=== PATIENT | female | born 1995 | race American Indian/Alaskan Native ===

== ENCOUNTER 2017-03-28 11:16 | Emergency (ER) | payer MEDICAID ==
[2017-03-28 11:25] VITALS: BP 118/79
[2017-03-28] MEDS ORDERED: REGLAN IV ONE (12:51)
[2017-03-28] MEDS ORDERED: TYLENOL PO ONE (12:52)
--- NOTE | 2017-03-28 14:56 | Emergency Department Report ---
Entered by ABIMAEL GONZALEZ, acting as scribe for JERMAINE MILNER PA. ED Headache HPI - General Chief Complaint: Headache Stated Complaint: MIGRAINES/BLURRED VISION Source: patient Exam Limitations: no limitations - History of Present Illness Initial Comments: 21 year old female with a PMHx of anemia and sickle cell trait presents to the ED c/o a left sided headache that began last night. Rates the headache a 6/10 in severity, which she describes as throbbing in quality. Patient states the pain radiates from her left orbital to left frontal. Notes she left work this morning due to headache. Associated symptoms includes slightly blurry vision that began this morning and light sensitivity, but she denies fever, chills, urgency, dysuria, abdominal pain, nausea, and vomiting. Denies any recent head trauma/injury. Denies Hx of migraines. Took 2 tablets of Aleve with no relief. Patient states she's been on Depo for 4 years. NKDA. Timing/Duration: constant, other (began last night) Quality: moderate Head Injury Location: other (headache present to left orbital and frontal area) Recent Head Trauma: no recent headache/trauma Modifying Factors: improves with: medication (took Aleve with no relief). worse with: exposure to light Associated Symptoms: vision changes (slightly subjective blurry vision), other ( light sensitivity, but denies dysuria, urgency, and abdominal pain). denies: confusion, facial pain, fever/chills, nausea/vomiting, numbness in legs/feet, stiff neck Allergies/Adverse Reactions: Allergies No Known Allergies Allergy (Verified 03/28/17 11:25) Home Medications: Ambulatory Orders Acetaminophen [Acetaminophen TAB] 500 mg PO Q6HR PRN #25 tablet 03/28/17 Ibuprofen [Motrin] 600 mg PO Q8H PRN #30 tablet 03/28/17 ED Review of Systems Comment: All other systems reviewed and negative Constitutional: no symptoms reported. denies: chills, fever Eyes: vision change (blurry vision), other (light sensitivity). denies: eye pain, eye discharge ENT: denies: ear pain, throat pain Respiratory: no symptoms reported. denies: cough, shortness of breath, wheezing Cardiovascular: denies: chest pain, palpitations Endocrine: no symptoms reported Gastrointestinal: denies: abdominal pain, nausea, diarrhea Genitourinary: denies: urgency, dysuria, discharge Musculoskeletal: denies: back pain, joint swelling, arthralgia, other (stiff neck ) Skin: denies: rash, lesions Neurological: headache (radiates from left orbital area to left frontal). denies: weakness, numbness, paresthesias, confusion Psychiatric: denies: anxiety, depression Hematological/Lymphatic: denies: easy bleeding, easy bruising ED Past Medical Hx - Past Medical History Previous Medical History?: Yes Additional medical history: anemia, sickle cell trait - Surgical History Past Surgical History?: No - Social History Smoking Status: Never Smoker Substance Use Type: None - Medications Home Medications: Home Medications Medication Instructions Recorded Confirmed Last Taken Type Acetaminophen [Acetaminophen TAB] 500 mg PO Q6HR PRN #25 tablet 03/28/17 Unknown Rx Ibuprofen [Motrin] 600 mg PO Q8H PRN #30 tablet 03/28/17 Unknown Rx ED Physical Exam - General Limitations: No Limitations General appearance: alert, in no apparent distress - Head Head exam: Present: atraumatic, normocephalic - Eye Eye exam: Present: normal appearance, EOMI. Absent: conjunctival injection Pupils: Present: normal accommodation - Expanded Eye Exam Expanded Pupils: Regular, Round: Bilateral Sclera/Conjunctival: Normal Inspection: Bilateral Visual acuity (R) = 20/: 25 Visual acuity (L) = 20/: 25 With correction: Yes - ENT ENT exam: Present: normal exam, mucous membranes moist - Neck Neck exam: Present: normal inspection, full ROM. Absent: tenderness, meningismus, lymphadenopathy - Respiratory Respiratory exam: Present: normal lung sounds bilaterally (no adventitious sounds present). Absent: respiratory distress, accessory muscle use, decreased breath sounds - Cardiovascular Cardiovascular Exam: Present: regular rate, normal rhythm, normal heart sounds - GI/Abdominal GI/Abdominal exam: Present: soft, normal bowel sounds - Extremities Exam Extremities exam: Present: normal inspection, full ROM - Back Exam Back exam: Present: normal inspection, full ROM - Neurological Exam Neurological exam: Present: alert, oriented X3, CN II-XII intact, normal gait, reflexes normal. Absent: motor sensory deficit - Expanded Neurological Exam Expanded Neurological exam: Absent: innattentive Patient oriented to: Present: person, place, time Speech: Present: fluid speech (normal tone of speech) Cranial nerves: EOM's Intact: Normal, Nystagmus: Normal, Facial Sensation: Normal, Facial Palsy with Forehead Movement: Normal, Facial Palsy without Forehead Movement: Normal Cerebellar function: Finger to Nose: Normal Motor strength exam: RUE: 5, LUE: 5, RLE: 5, LLE: 5 Best Eye Response ([place]): (4) open spontaneously Best Motor Response ([place]): (6) obeys commands Best Verbal Response ([place]): (5) oriented [place] Total: 15 - Psychiatric Psychiatric exam: Present: normal affect, normal mood - Skin Skin exam: Present: warm, dry, intact. Absent: rash ED Course Vital Signs 03/28/17 11:22 Temperature 98.3 F Pulse Rate 74 Respiratory 16 Rate Blood Pressure 118/79 O2 Sat by Pulse 98 Oximetry ED Medical Decision Making - Medical Decision Making A/P: Migraine headache 1- vision experienced significant relief of headache with Reglan and Tylenol, headache currently 0 out of 10. Patient has no neurological deficits on clinical exam, cranial nerves I through XII intact on clinical exam. awake alert and oriented 3 2- prescribe patient extra strength Tylenol and Motrin 3- follow-up with primary care and neurology 4-as patient has no overt neurological deficits there is no indication for acute imaging at this time 5- patient has no signs of meningismus or fever no chills no neck rigidity no nausea or vomiting mentating well and fully lucid ED Disposition Clinical Impression: Migraine headache Qualifiers: Migraine type: without aura Status migrainosus presence: without status migrainosus Intractability: not intractable Qualified Code(s): G43.009 - Migraine without aura, not intractable, without status migrainosus Disposition: DISCHARGED TO HOME OR SELFCARE Is pt being admited?: No Does the pt Need Aspirin: No Condition: Stable Instructions: Migraine Headache (ED) Prescriptions: Acetaminophen [Acetaminophen TAB] 500 mg PO Q6HR PRN #25 tablet PRN Reason: Headache Ibuprofen [Motrin] 600 mg PO Q8H PRN #30 tablet PRN Reason: Pain Referrals: JERMAINE GRIFFITHS MD [Staff Physician] - 3-5 Days [facility] [Outside] - 3-5 Days [facility] [Outside] - 3-5 Days KAITLYNN ANGULO MD [Staff Physician] - 3-5 Days Forms: Accompanied Note, Work/School Release Form(ED) Time of Disposition: 14:45 This documentation as recorded by the CARLOS vivar JASMINE,accurately reflects the service I personally performed and the decisions made by ,JERMAINE MILNER PA.
== END 2017-03-28 14:55 | disposition home or self-care (01) ==
LOC: ED 11:16
DX: G43.009 Migraine without aura, not intractable, without status migrainosus (principal); D57.3 Sickle-cell trait; D64.9 Anemia, unspecified
CPT/HCPCS: 96374; 99283; J2765